=== PATIENT | female | born 1960 | race Caucasian/White ===

== ENCOUNTER 2018-10-09 09:47 | Outpatient (CLI) | payer OTHER ==
[~2018-10-09 09:47] MED LIST: BENADRYL50 MG PO; PEPCID40 MG PO
== END 2018-10-09 09:51 | disposition home or self-care (01) ==
LOC: RAD 09:47
DX: R07.89 Other chest pain (principal)

== ENCOUNTER 2019-04-07 13:51 | Outpatient (CLI) | payer OTHER | END 2019-04-07 13:54 | disposition home or self-care (01) | LOC: RAD 13:51 | DX: R05 Cough (principal) ==

== ENCOUNTER 2019-04-13 11:23 | Outpatient (CLI) | payer OTHER | END 2019-04-13 13:53 | disposition home or self-care (01) | LOC: MAMO-SONO 11:23 | DX: M77.42 Metatarsalgia, left foot (principal); M25.572 Pain in left ankle and joints of left foot; M19.90 Unspecified osteoarthritis, unspecified site; E04.2 Nontoxic multinodular goiter; E04.8 Other specified nontoxic goiter ==

== ENCOUNTER 2020-02-13 09:35 | Outpatient (CLI) | payer OTHER | END 2020-02-13 09:53 | disposition home or self-care (01) | LOC: MAMO-SONO 09:35 | PROVIDERS: ATTEND Obstetrics & Gynecology Obstetrics | DX: Z12.31 Encounter for screening mammogram for malignant neoplasm of breast (principal); N60.11 Diffuse cystic mastopathy of right breast; N60.12 Diffuse cystic mastopathy of left breast; E04.8 Other specified nontoxic goiter ==

== ENCOUNTER 2020-02-24 13:34 | Outpatient (CLI) | payer OTHER | END 2020-02-24 13:46 | disposition home or self-care (01) | LOC: NUCLEAR 13:34 | PROVIDERS: ATTEND Obstetrics & Gynecology Obstetrics | DX: M81.0 Age-related osteoporosis without current pathological fracture (principal) ==

== ENCOUNTER 2023-02-16 10:15 | Outpatient (CLI) | payer OTHER | END 2023-02-16 10:25 | disposition home or self-care (01) | LOC: MAMO-SONO 10:15 | PROVIDERS: ATTEND Obstetrics & Gynecology Obstetrics | DX: Z12.31 Encounter for screening mammogram for malignant neoplasm of breast (principal); N60.11 Diffuse cystic mastopathy of right breast; N60.12 Diffuse cystic mastopathy of left breast ==